=== PATIENT | female | born 1980 | race Caucasian/White ===

== ENCOUNTER 2018-03-17 14:52 | Emergency (ER) | payer MEDICAID ==
[~2018-03-17] VITALS: Ht 160 cm; Wt 148.8 kg
[~2018-03-17 14:52] MED LIST: ALBU90OI INH; ALBU90OI61 INH; Adipex-P37.5 M1 PO; Bactrim Ds Tab1 EACH PO; Cyclobenzaprine5 MG PO; Desyrel150 MG PO; GLIP10 PO; GLIP5; IBUP800 PO; LAMO100 PO; LISI20 PO; Lamictal150 MG PO; METF500 PO; METPRE4DP PO; Metformin HCl750 MG PO; Monodox100 MG PO; Percocet 5-3251 EACH PO; Prednisone20 MG PO; Prilosec Otc20 MG PO; SUCR1 PO; TOPI25; TRAM50 PO; Ultram50 MG PO; Ventolin Soln3 ML INH; ZESTORETIC 20-121 EA PO; [UNRECOGNIZED DRUG - OTHER]; [UNRECOGNIZED DRUG - OTHER]
[2018-03-17] MEDS ORDERED: Prednisone20 MG PO (15:12)
[2018-03-17] MEDS ORDERED: Triamcinolone A15 G3 TOP (15:12)
== END 2018-03-17 15:15 | disposition home or self-care (01) ==
LOC: ER 14:52
DX: T65.891A Toxic effect of other specified substances, accidental (unintentional), initial encounter (principal); L25.3 Unspecified contact dermatitis due to other chemical products; J45.909 Unspecified asthma, uncomplicated; I10 Essential (primary) hypertension; E11.9 Type 2 diabetes mellitus without complications; F31.9 Bipolar disorder, unspecified; Z91.040 Latex allergy status; Z88.8 Allergy status to other drugs, medicaments and biological substances; Z79.899 Other long term (current) drug therapy; Z79.84 Long term (current) use of oral hypoglycemic drugs
CPT/HCPCS: 99282

== ENCOUNTER 2019-03-11 20:35 | Emergency (ER) | payer OTHER ==
[~2019-03-11] VITALS: Ht 160 cm; Wt 166.9 kg
[~2019-03-11 20:35] MED LIST changes: +Triamcinolone A15 G3 TOP
[2019-03-11] MEDS ORDERED: IBUP800 PO (21:51)
== END 2019-03-11 21:56 | disposition home or self-care (01) ==
LOC: ER 20:35
DX: S63.92XA Sprain of unspecified part of left wrist and hand, initial encounter (principal); M79.672 Pain in left foot; W18.30XA Fall on same level, unspecified, initial encounter; Z91.040 Latex allergy status; Z88.8 Allergy status to other drugs, medicaments and biological substances; Z79.899 Other long term (current) drug therapy; Z79.84 Long term (current) use of oral hypoglycemic drugs; Z79.52 Long term (current) use of systemic steroids; I10 Essential (primary) hypertension; J45.909 Unspecified asthma, uncomplicated; E11.9 Type 2 diabetes mellitus without complications; F31.9 Bipolar disorder, unspecified
CPT/HCPCS: 29125; 73130; 99283-25

== ENCOUNTER 2019-06-18 09:52 | Emergency (ER) | payer OTHER ==
[~2019-06-18] VITALS: Ht 162.6 cm; Wt 166.9 kg
[2019-06-18] MEDS ORDERED: ZESTORETIC 20-251 EA (10:24)
[2019-06-18] MEDS ORDERED: Prednisone20 MG PO (11:18)
[2019-06-18] MEDS ORDERED: BENZ100A PO (11:18)
[2019-06-18] MEDS ORDERED: Sudogest30 MG PO (11:18)
[2019-06-18] MEDS ORDERED: Flonase 0.05% N16 GM (11:18)
[2019-06-18] MEDS ORDERED: ALBU90OI INH (11:18)
== END 2019-06-18 11:30 | disposition home or self-care (01) ==
LOC: ER 09:52
DX: R05 Cough (principal); H65.93 Unspecified nonsuppurative otitis media, bilateral; I10 Essential (primary) hypertension; E11.9 Type 2 diabetes mellitus without complications; Z91.040 Latex allergy status; Z88.5 Allergy status to narcotic agent; Z79.899 Other long term (current) drug therapy
CPT/HCPCS: 71046; 94640; 99283-25

== ENCOUNTER 2019-07-03 15:29 | Emergency (ER) | payer OTHER ==
[~2019-07-03] VITALS: Ht 162.6 cm; Wt 164.2 kg
[~2019-07-03 15:29] MED LIST changes: +BENZ100A PO; +Flonase 0.05% N16 GM; +Sudogest30 MG PO; +ZESTORETIC 20-251 EA
[2019-07-03] MEDS ORDERED: NAPR550 PO (16:06)
== END 2019-07-03 16:45 | disposition home or self-care (01) ==
LOC: ER 15:29
DX: S90.32XA Contusion of left foot, initial encounter (principal); J45.909 Unspecified asthma, uncomplicated; I10 Essential (primary) hypertension; E11.9 Type 2 diabetes mellitus without complications; F31.9 Bipolar disorder, unspecified; Z91.040 Latex allergy status; Z88.8 Allergy status to other drugs, medicaments and biological substances; Z79.899 Other long term (current) drug therapy; Z79.51 Long term (current) use of inhaled steroids; W22.8XXA Striking against or struck by other objects, initial encounter
CPT/HCPCS: 73630; 96372; 99283-25; J1885

== ENCOUNTER 2019-07-17 19:16 | Emergency (ER) | payer OTHER ==
[~2019-07-17] VITALS: Ht 160 cm; Wt 165.6 kg
[~2019-07-17 19:16] MED LIST changes: +NAPR550 PO
[2019-07-17 19:38] LABS: Source, Urine Clean Catch
[2019-07-17 19:42] LABS: Bilirubin, Urine Neg (Neg); Blood, Urine Neg (Neg); Glucose Qualitative, Urine Neg (Neg); Ketones, Urine Neg (Neg); Leukocyte Esterase, Urine 2+ (Neg); Nitrite, Urine Neg (Neg); Protein, Urine Neg (Neg); Urobilinogen, Urine NORM (Normal)
[2019-07-17] MEDS ORDERED: VITAMIN D3 (19:42)
[2019-07-17 19:53] LABS: Appearance, Urine Clear (Clear); Color, Urine Pale Yellow (P-Yellow)
[2019-07-17 19:57] LABS: BASOPHILS ABSOLUTE AUTO 0.07 K/mm3 (0.00-0.23); BASOPHILS PERCENT AUTO 1 % (0-2); EOSINOPHILS ABSOLUTE AUTO 0.35 K/mm3 (0.00-0.68); EOSINOPHILS PERCENT AUTO 3 % (0-6); Hematocrit 42.3 % (33.0-51.0); Hemoglobin 13.9 g/dL (11.5-16.0); IMMATURE GRAN ABSOLUTE AUTO 0.12 K/mm3 (0.00-0.10); IMMATURE GRAN PERCENT AUTO 1 % (0-1); LYMPHOCYTES PERCENT AUTO 32 % (21-46); MONOCYTES ABSOLUTE AUTO 0.84 K/mm3 (0.16-1.47); MONOCYTES PERCENT AUTO 8 % (4-13); Mean Corpuscular HGB 31.4 pg (26.0-34.0); Mean Corpuscular HGB Conc 32.9 g/dL (31.5-36.5); Mean Corpuscular Volume 96 fL (80-100); Mean Platelet Volume 11.1 fL (9.1-12.4); NEUTROPHILS ABSOLUTE AUTO 6.17 K/mm3 (1.96-9.15); NEUTROPHILS PERCENT AUTO 56 % (41-73); Platelet Count 230 K/mm3 (150-400); RDW Coefficient Variation 12.3 % (11.7-14.2); RDW Standard Deviation 43.8 fL (35.1-46.3); Red Blood Cell Count 4.43 M/mm3 (3.80-5.20); White Blood Cell Count 11.05 K/mm3 (4.00-11.30)
[2019-07-17 19:58] LABS: Red Blood Cells, Urine 0-2 /hpf (0-2); Squamous Epithelial Cells Few /hpf (Few)
[2019-07-17 19:59] LABS: Bacteria Few /hpf
[2019-07-17 20:16] LABS: Alanine Aminotransfer (ALT/SGP 40 U/L (12-78); Albumin, Blood 3.6 g/dL (3.4-5.0); Alk Phos 87 U/L (50-136); Anion Gap 4 mmol/L (6-16); Aspartate Aminotrans (AST/SGOT 21 U/L (12-37); Bilirubin, Total 0.3 mg/dL (0.1-1.0); Blood Urea Nitrogen 15 mg/dL (8-24); Bun/Creatinine Ratio 20.1 (12.0-20.0); CO2, Blood 29 mmol/L (21-32); Calcium, Blood 9.1 mg/dL (8.5-10.1); Chloride, Blood 104 mmol/L (98-108); Creatinine, Blood 0.75 mg/dL (0.40-1.00); Globulin, Blood 3.5 g/dL (2.2-4.0); Glomerular Filtration Rate >60 (60-); Glucose, Blood 152 mg/dL (70-99); Potassium, Blood 3.5 mmol/L (3.5-5.5); Sodium, Blood 137 mmol/L (136-145); Total Protein, Blood 7.1 g/dL (6.4-8.2)
[2019-07-17] MEDS ORDERED: CEPH500 PO (20:17)
[2019-07-17] MEDS ORDERED: Ultram50 MG PO (20:17)
== END 2019-07-17 20:30 | disposition home or self-care (01) ==
LOC: ER 19:16
PROVIDERS: Physician Assistant
DX: N12 Tubulo-interstitial nephritis, not specified as acute or chronic (principal); I10 Essential (primary) hypertension; E11.9 Type 2 diabetes mellitus without complications; F31.9 Bipolar disorder, unspecified; J45.909 Unspecified asthma, uncomplicated; Z79.899 Other long term (current) drug therapy
CPT/HCPCS: 36415; 80053; 81001; 83690; 85025; 87077; 87086; 87186; 96374; 99284-25; A9270-GY; J1885

== ENCOUNTER → 2019-11-26 | Outpatient (CLI) | payer OTHER ==
[~2019-11-26] MED LIST changes: +CEPH500 PO; +VITAMIN D3
== END | disposition home or self-care (01) ==
LOC: LAB SHORT 19:44 → LAB 19:44
DX: R82.90 Unspecified abnormal findings in urine (principal)
CPT/HCPCS: 87077; 87086; 87186

== ENCOUNTER 2022-03-28 09:42 | Emergency (ER) | payer OTHER ==
[~2022-03-28] VITALS: Ht 162.6 cm; Wt 163.8 kg
[2022-03-28] MEDS ORDERED: Prednisone20 MG PO (09:57)
== END 2022-03-28 10:20 | disposition home or self-care (01) ==
LOC: ER 09:42
DX: L50.9 Urticaria, unspecified (principal); I10 Essential (primary) hypertension; J45.909 Unspecified asthma, uncomplicated; E11.9 Type 2 diabetes mellitus without complications; Z88.8 Allergy status to other drugs, medicaments and biological substances; Z91.040 Latex allergy status; Z79.899 Other long term (current) drug therapy
CPT/HCPCS: 99282

== ENCOUNTER 2022-06-11 11:49 | Emergency (ER) | payer OTHER ==
[~2022-06-11] VITALS: Ht 162.6 cm; Wt 163.8 kg
[~2022-06-11 11:49] MED LIST changes: +CEFP200 PO; +GLYBURIDE5 M2 PO; +HYDCHL25 PO; +METFORMIN HCL500 M3 PO
== END 2022-06-11 13:15 | disposition home or self-care (01) ==
LOC: ER 11:49
DX: S63.501A Unspecified sprain of right wrist, initial encounter (principal); I10 Essential (primary) hypertension; J45.909 Unspecified asthma, uncomplicated; E11.9 Type 2 diabetes mellitus without complications; Z91.040 Latex allergy status; Z88.8 Allergy status to other drugs, medicaments and biological substances; Z79.899 Other long term (current) drug therapy; Z79.84 Long term (current) use of oral hypoglycemic drugs
CPT/HCPCS: 73110

== ENCOUNTER 2023-07-02 18:03 | Emergency (ER) | payer OTHER ==
[~2023-07-02] VITALS: Ht 162.6 cm; Wt 170.1 kg
[2023-07-02 18:23] VITALS: BP 146/101
== END 2023-07-02 19:40 | disposition home or self-care (01) ==
LOC: ER 18:03
DX: S40.011A Contusion of right shoulder, initial encounter (principal); S90.32XA Contusion of left foot, initial encounter; S83.92XA Sprain of unspecified site of left knee, initial encounter; W10.9XXA Fall (on) (from) unspecified stairs and steps, initial encounter; E11.9 Type 2 diabetes mellitus without complications; I10 Essential (primary) hypertension; F31.9 Bipolar disorder, unspecified; Z88.8 Allergy status to other drugs, medicaments and biological substances; Z91.040 Latex allergy status; Z79.899 Other long term (current) drug therapy; Z79.84 Long term (current) use of oral hypoglycemic drugs; J45.909 Unspecified asthma, uncomplicated
CPT/HCPCS: 73030; 73562-LT; 73620; 99283-25; A9270

== ENCOUNTER → 2024-05-19 | Outpatient (CLI) | payer BC | LOC: LAB SHORT 14:51 → LAB 14:51 | DX: J02.9 Acute pharyngitis, unspecified (principal) | CPT/HCPCS: 87081 ==

== ENCOUNTER 2024-08-26 20:57 | Inpatient (IN) | payer BC, OTHER ==
[~2024-08-26] VITALS: Ht 165.1 cm; Wt 168.1 kg
[~2024-08-26 20:57] MED LIST changes: +CYCL10 PO; -HYDCHL25 PO; +HYDCHL50 PO; +Norco 5-325 Ta1 EACH PO; -VITAMIN D3; +VITAMIN D3 PO
[2024-08-26 22:37] LABS: Source, Urine Clean Catch
[2024-08-26 22:43] LABS: Bilirubin, Urine Neg (Neg); Blood, Urine 5+ (Neg); Glucose Qualitative, Urine Neg (Neg); Ketones, Urine 1+ (Neg); Leukocyte Esterase, Urine Neg (Neg); Nitrite, Urine Neg (Neg); Protein, Urine Neg (Neg); Urobilinogen, Urine NORM (Normal)
[2024-08-26 22:51] LABS: BASOPHILS ABSOLUTE AUTO 0.07 K/mm3 (0.00-0.23); BASOPHILS PERCENT AUTO 0 % (0-2); EOSINOPHILS ABSOLUTE AUTO 0.14 K/mm3 (0.00-0.68); EOSINOPHILS PERCENT AUTO 1 % (0-6); Hematocrit 44.2 % (33.0-51.0); IMMATURE GRAN ABSOLUTE AUTO 0.09 K/mm3 (0.00-0.10); IMMATURE GRAN PERCENT AUTO 1 % (0-1); LYMPHOCYTES ABSOLUTE AUTO 2.27 K/mm3 (0.84-5.20); LYMPHOCYTES PERCENT AUTO 13 % (21-46); MONOCYTES ABSOLUTE AUTO 1.12 K/mm3 (0.16-1.47); MONOCYTES PERCENT AUTO 6 % (4-13); Mean Corpuscular HGB 30.8 pg (26.0-34.0); Mean Corpuscular HGB Conc 33.9 g/dL (31.5-36.5); Mean Corpuscular Volume 91 fL (80-100); Mean Platelet Volume 11.3 fL (9.1-12.4); NEUTROPHILS ABSOLUTE AUTO 13.81 K/mm3 (1.96-9.15); NEUTROPHILS PERCENT AUTO 79 % (41-73); Platelet Count 242 K/mm3 (150-400); RDW Coefficient Variation 12.6 % (11.7-14.2); Red Blood Cell Count 4.87 M/mm3 (3.80-5.20)
[2024-08-26 22:55] LABS: Appearance, Urine Clear (Clear); Color, Urine Yellow (P-Yellow); Red Blood Cells, Urine 25-50 /hpf (0-2); White Blood Cells, Urine Not Seen /hpf (0-5)
[2024-08-26 22:56] LABS: Bacteria Few /hpf; Squamous Epithelial Cells Few /hpf (Few)
[2024-08-26 23:24] LABS: Alanine Aminotransfer (ALT/SGP 52 U/L (12-78); Albumin, Blood 3.4 g/dL (3.4-5.0); Albumin/Globulin Ratio 0.9 (0.8-1.8); Alk Phos 101 U/L (50-136); Anion Gap 9 mmol/L (3-11); Aspartate Aminotrans (AST/SGOT 56 U/L (12-37); Bilirubin, Total 0.6 mg/dL (0.1-1.0); Blood Urea Nitrogen 12 mg/dL (8-24); Bun/Creatinine Ratio 16.7 (12.0-20.0); CO2, Blood 27 mmol/L (21-32); Calcium, Blood 9.5 mg/dL (8.5-10.1); Chloride, Blood 106 mmol/L (98-108); Creatinine, Blood 0.72 mg/dL (0.40-1.00); Globulin, Blood 3.8 g/dL (2.2-4.0); Glomerular Filtration Rate 107 (60-); Glucose, Blood 257 mg/dL (70-99); Potassium, Blood 4.3 mmol/L (3.5-5.5); Sodium, Blood 138 mmol/L (136-145); Total Protein, Blood 7.2 g/dL (6.4-8.2)
[2024-08-26] MEDS ORDERED: Ondansetron HCl 2 MG / ML 2ML Vial IV ONE (23:40)
[2024-08-26] MEDS ORDERED: Morphine Sulfate 4 MG/1 ML Injection IV ONE (23:40)
[2024-08-27] MEDS ORDERED: HYDROmorphone HCl/Pf 1MG SYR IV ONE (01:00)
[2024-08-27] MEDS ORDERED: NS 1,000 ML IV SCH (02:10)
[2024-08-27] MEDS ORDERED: Ondansetron HCl 2 MG / ML 2ML Vial IV PRN (02:10)
[2024-08-27] MEDS ORDERED: FLU VACC TS2024-25(6MOS UP)/PF 45 MCG/0.5 ML SYRINGE IM ONE (02:10)
[2024-08-27] MEDS ORDERED: FentaNYL Citrate 50 MCG/ML 2 ML Injection IV PRN (02:15)
[2024-08-27 02:44] LABS: CHOL/HDL RATIO 3.6; Cholesterol 162 mg/dL (50-200); HDL Cholesterol 45 mg/dL (>39); LDL/HDL RATIO 1.9; Low Density Lipoprotein Chol 86 mg/dL (0-110); Triglycerides 153 mg/dL (30-160); Very Low Density Lipoprot Chol 30 mg/dL (6-32)
[2024-08-27 05:16] LABS: BASOPHILS ABSOLUTE AUTO 0.05 K/mm3 (0.00-0.23); BASOPHILS PERCENT AUTO 1 % (0-2); EOSINOPHILS ABSOLUTE AUTO 0.11 K/mm3 (0.00-0.68); EOSINOPHILS PERCENT AUTO 1 % (0-6); Hematocrit 41.1 % (33.0-51.0); IMMATURE GRAN ABSOLUTE AUTO 0.03 K/mm3 (0.00-0.10); IMMATURE GRAN PERCENT AUTO 0 % (0-1); LYMPHOCYTES ABSOLUTE AUTO 3.15 K/mm3 (0.84-5.20); LYMPHOCYTES PERCENT AUTO 32 % (21-46); MONOCYTES ABSOLUTE AUTO 0.66 K/mm3 (0.16-1.47); MONOCYTES PERCENT AUTO 7 % (4-13); Mean Corpuscular HGB Conc 34.1 g/dL (31.5-36.5); Mean Corpuscular Volume 91 fL (80-100); Mean Platelet Volume 11.6 fL (9.1-12.4); NEUTROPHILS ABSOLUTE AUTO 5.88 K/mm3 (1.96-9.15); NEUTROPHILS PERCENT AUTO 60 % (41-73); Platelet Count 232 K/mm3 (150-400); RDW Coefficient Variation 12.7 % (11.7-14.2); RDW Standard Deviation 41.6 fL (35.1-46.3); Red Blood Cell Count 4.52 M/mm3 (3.80-5.20); White Blood Cell Count 9.88 K/mm3 (4.00-11.30)
[2024-08-27 05:53] LABS: Albumin, Blood 3.1 g/dL (3.4-5.0); Albumin/Globulin Ratio 0.9 (0.8-1.8); Bilirubin, Total 0.5 mg/dL (0.1-1.0); Bun/Creatinine Ratio 17.8 (12.0-20.0); Calcium, Blood 9.3 mg/dL (8.5-10.1); Creatinine, Blood 0.62 mg/dL (0.40-1.00); Globulin, Blood 3.6 g/dL (2.2-4.0); Potassium, Blood 3.9 mmol/L (3.5-5.5); Total Protein, Blood 6.7 g/dL (6.4-8.2)
[2024-08-27] MEDS ORDERED: Insulin Human Lispro 100 Units/ML 3ML Syringe SC SCH (07:30)
[2024-08-27 08:11] VITALS: BP 110/62
[2024-08-27] MEDS ORDERED: Enoxaparin 40 MG/0.4 ML SYR SC SCH (09:00)
[2024-08-27] MEDS ORDERED: CYCL10 PO (10:27)
[2024-08-27] MEDS ORDERED: LISI20 PO (10:29)
[2024-08-27] MEDS ORDERED: ROSUVASTATIN CAL5 MG PO (10:30)
[2024-08-27] MEDS ORDERED: MULVITA (10:31)
[2024-08-27] MEDS ORDERED: MULVITA PO (10:31)
[2024-08-27] MEDS ORDERED: TRULICITY3 MG/0.5 M SC (10:32)
[2024-08-27] MEDS ORDERED: BASAGLAR K100 UNIT/6 SC (14:59)
[2024-08-27 15:10] VITALS: BP 130/107
--- NOTE | 2024-08-27 15:58 | NUR ---
PATIENT TRANSFFERED TO MEDICAL FLOOR ROOM 304, REPORT GIVEN TO ANIVAL HOWE.
[2024-08-27 15:59] VITALS: BP 112/72
[2024-08-27] MEDS ORDERED: Lactated Ringer's 1,000 ML IV SCH (17:35)
[2024-08-27] MEDS ORDERED: HYDROmorphone HCl/Pf 1MG SYR IV PRN (17:50)
[2024-08-27] MEDS ORDERED: Cyclobenzaprine HCl 10 MG Tab PO PRN (17:55)
[2024-08-27 18:25] VITALS: BP 140/82
--- NOTE | 2024-08-27 19:55 | NUR ---
SHIFT SUMMARY- BEDSIDE REPORT COMPLETED WITH NIGHT RN. PT IN BED, CALL LIGHT IN REACH NO S&S OF DSTRESS NOTED SO AT THE BEDSIDE. PT WAS MEDICATED WITH IV DILAUDID PRIOR TO SHIFT CHANGE. NO S&S OF DISTRESS NOTED AT THE TIME OF REPORT. BED ALARM IS SET TO KEEP PT SAFE AFTER THE IV PAIN MEDS, THEY MADE HER A LITTLE DIZZY DIRECTLY AFTER SHE RECIEVED THEM.
[2024-08-27] MEDS ORDERED: Insulin Glargine-Yfgn 100 Unit/mL 3 ML SYR SC SCH (21:00)
[2024-08-28 02:35] VITALS: BP 99/65
[2024-08-28 02:41] VITALS: BP 144/85
--- NOTE | 2024-08-28 04:48 | NUR ---
A&OX4, MEDICATED X2 FOR ABD PAIN, 1X FOR NAUSEA, BEDRESTING AT THIS TIME, CALL LIGHT IN REACH, WILL CONT TO MONITOR UNTIL REPORT GIVEN TO ONCOMING NURSE.
[2024-08-28 07:08] VITALS: BP 130/98
[2024-08-28] MEDS ORDERED: Insulin Regular 100 UNIT/ML 10ML Vial SC SCH (07:30)
[2024-08-28] MEDS ORDERED: HydroCHLOROthiazide 25 mg Tab PO SCH (09:00)
[2024-08-28] MEDS ORDERED: Rosuvastatin Calcium 10 MG Tab PO SCH (09:00)
[2024-08-28] MEDS ORDERED: Lisinopril 20 MG Tab PO SCH (09:00)
[2024-08-28 09:40] VITALS: BP 151/99
[2024-08-28 16:14] VITALS: BP 136/79
--- NOTE | 2024-08-28 18:01 | NUR ---
SHIFT SUMMARY- PT PAIN MANAGEMENT IS STILL AN ISSUE ALTHOUGH THE PAIN MEDS WERE ABOUT EVERY 4 HOURS OR SO. SHE IS ALERT, ORIENTED AND INDEPENDENT IN THE ROOM. PT IS SITTING UP IN BED, CALL LIGHT IN REACH, SHE STATES PAIN IS WELL MANAGED AT THIS TIME. PT IS A DIABETIC, BG CHECKS CHANGED TO [facility] THIS AFTERNOON PER DR JORDAN. BG 162 BEFORE LUNCH HELD THE HUMALOG FOR CLINICAL JUDGEMENT. BG BEFORE DINNER WAS 106. PT IS ON LR AT 125ML/HR. PT WAS ABLE TO HAVE A FULL SHOWER TODAY. SPOKE TO ABOUT PO PAIN MEDS, NOT ORDERED AT THIS TIME, PLAN IS FOR GI REST WITH ONLY CLEAR LIQUIDS. PT IN BED, CALL LIGHT IN REACH, SO AND DAUGHTER AT THE BEDSIDE, NO CURRENT S&S OF DISTRESS AT THIS TIME.
[2024-08-28 20:57] VITALS: BP 128/72
[2024-08-29 02:43] VITALS: BP 113/63
[2024-08-29 04:56] LABS: BASOPHILS ABSOLUTE AUTO 0.04 K/mm3 (0.00-0.23); BASOPHILS PERCENT AUTO 1 % (0-2); EOSINOPHILS ABSOLUTE AUTO 0.28 K/mm3 (0.00-0.68); EOSINOPHILS PERCENT AUTO 3 % (0-6); Hematocrit 38.5 % (33.0-51.0); Hemoglobin 13.1 g/dL (11.5-16.0); IMMATURE GRAN ABSOLUTE AUTO 0.03 K/mm3 (0.00-0.10); IMMATURE GRAN PERCENT AUTO 0 % (0-1); LYMPHOCYTES ABSOLUTE AUTO 2.21 K/mm3 (0.84-5.20); LYMPHOCYTES PERCENT AUTO 26 % (21-46); MONOCYTES PERCENT AUTO 8 % (4-13); Mean Corpuscular HGB 30.8 pg (26.0-34.0); Mean Corpuscular Volume 90 fL (80-100); Mean Platelet Volume 11.5 fL (9.1-12.4); NEUTROPHILS ABSOLUTE AUTO 5.14 K/mm3 (1.96-9.15); NEUTROPHILS PERCENT AUTO 61 % (41-73); Platelet Count 190 K/mm3 (150-400); RDW Coefficient Variation 12.6 % (11.7-14.2); RDW Standard Deviation 41.5 fL (35.1-46.3); Red Blood Cell Count 4.26 M/mm3 (3.80-5.20)
[2024-08-29 05:19] LABS: Bun/Creatinine Ratio 9.7 (12.0-20.0); Calcium, Blood 9.3 mg/dL (8.5-10.1); Creatinine, Blood 0.62 mg/dL (0.40-1.00); Potassium, Blood 4.2 mmol/L (3.5-5.5)
--- NOTE | 2024-08-29 06:22 | NUR ---
A&OX4, VSS, MEDICATED X2 FOR PAIN & PREMEDICATED FOR NAUSEA PRIOR TO DILAUDID, INDEP TO BR, SLEEPING AT THIS TIME, CALL LIGHT IN REACH, WILL CONT TO MONITOR UNTIL REPORT GIVEN TO ONCOMING NURSE.
[2024-08-29 07:32] VITALS: BP 112/60
[2024-08-29] MEDS ORDERED: HYDROcodone 5-APAP 325 TAB PO PRN (13:55)
[2024-08-29 15:41] VITALS: BP 118/83
--- NOTE | 2024-08-29 18:06 | NUR ---
SHIFT SUMMARY: PT IS A&OX4/INDEPENDENT; CALLS APPROPRIATELY. SHE CONTINUES TO LR AT 125ML/HR AND ON A CLEAR LIQUID DIET; TOLERATING WELL. SHE WAS SWITCHED TO PO PAIN MEDICATION TODAY; RECEIVED ONE DOSE FOR EPIGASTRIC PAIN, TOLERATED WELL, NO COMPLAINTS OF NAUSEA. THE PLAN IS TO ADVANCE HER DIET TODAY. SHE IS IN BED, FAMILY AT BEDSIDE, NO SIGNS OR SYMPTOMS OF DISTRESS, PLAN OF CARE ONGOING.
[2024-08-29 19:30] VITALS: BP 129/80
[2024-08-30 04:36] VITALS: BP 129/82
[2024-08-30 04:53] LABS: BASOPHILS ABSOLUTE AUTO 0.06 K/mm3 (0.00-0.23); BASOPHILS PERCENT AUTO 1 % (0-2); EOSINOPHILS ABSOLUTE AUTO 0.38 K/mm3 (0.00-0.68); EOSINOPHILS PERCENT AUTO 5 % (0-6); Hematocrit 37.7 % (33.0-51.0); Hemoglobin 13.1 g/dL (11.5-16.0); IMMATURE GRAN ABSOLUTE AUTO 0.03 K/mm3 (0.00-0.10); IMMATURE GRAN PERCENT AUTO 0 % (0-1); LYMPHOCYTES ABSOLUTE AUTO 2.56 K/mm3 (0.84-5.20); LYMPHOCYTES PERCENT AUTO 34 % (21-46); MONOCYTES ABSOLUTE AUTO 0.64 K/mm3 (0.16-1.47); MONOCYTES PERCENT AUTO 9 % (4-13); Mean Corpuscular HGB 31.6 pg (26.0-34.0); Mean Corpuscular HGB Conc 34.7 g/dL (31.5-36.5); Mean Corpuscular Volume 91 fL (80-100); Mean Platelet Volume 11.7 fL (9.1-12.4); NEUTROPHILS ABSOLUTE AUTO 3.89 K/mm3 (1.96-9.15); NEUTROPHILS PERCENT AUTO 51 % (41-73); Platelet Count 197 K/mm3 (150-400); RDW Coefficient Variation 12.5 % (11.7-14.2); RDW Standard Deviation 41.2 fL (35.1-46.3); Red Blood Cell Count 4.14 M/mm3 (3.80-5.20); White Blood Cell Count 7.56 K/mm3 (4.00-11.30)
[2024-08-30 05:22] LABS: Bun/Creatinine Ratio 9.6 (12.0-20.0); Calcium, Blood 9.5 mg/dL (8.5-10.1); Creatinine, Blood 0.62 mg/dL (0.40-1.00)
--- NOTE | 2024-08-30 05:51 | NUR ---
A&O, NO ACUTE CHANGES, PT TRIED TO ONLY USE NORCO FOR PAIN BUT DID NEED 1 DOSE OF DILAUDID (0.5) THIS SHIFT, PAIN NOT WELL CONTROLLED W/NORCO, PREMEDICATED 1X FOR NAUSEA PRIOR TO DILAUDID, SLEEPING AT THIS TIME, CALL LIGHT IN REACH, WILL CONT TO MONITOR UNTIL REPORT GIVEN TO ONCOMING NURSE.
[2024-08-30 07:20] VITALS: BP 117/79
[2024-08-30 16:42] VITALS: BP 120/87
--- NOTE | 2024-08-30 17:20 | NUR ---
SHIFT SUMMARY: PT ADVANCED TO A FULL LIQUID DIET TODAY, TOLERATING WELL. CONTINUES TO GET LR AT 125ML/HR. SHE CONTINUES TO HAVE PERIOD EPIGASTRIC PAIN AND REQUEST PO PAIN MEDICATION NEEDED, BUT NO IV PAIN MEDICATION ADMINISTERED THIS SHIFT. PATIENT IS IN BED, CALL LIGHT WITHIN REACH, NO SIGNS OR SYMPTOMS OF DISTRESS, PLAN OF CARE ONGOING.
[2024-08-30 20:44] VITALS: BP 153/92
[2024-08-31 03:24] VITALS: BP 121/68
--- NOTE | 2024-08-31 05:36 | NUR ---
SHIFT SUMMARY PT A&Ox4 AND PLEASANT. MEDICATED FOR UPPER ABD PAIN PER EMAR. PT STATED ORAL PAIN MEDICATION HAS NOT BEEN EFFECTIVE AT CONTROLLING THE PAIN. PT TOLERATING FULL LIQUID DIET. LR INFUSING AT 125ml/hr. NO EVENTS ON TELE. AT BEDSIDE T/O NIGHT. IND IN ROOM. VSS. BED IN LOWEST POSITION AND CALL LIGHT IN REACH.
[2024-08-31 05:59] LABS: BASOPHILS ABSOLUTE AUTO 0.06 K/mm3 (0.00-0.23); BASOPHILS PERCENT AUTO 1 % (0-2); EOSINOPHILS ABSOLUTE AUTO 0.36 K/mm3 (0.00-0.68); EOSINOPHILS PERCENT AUTO 5 % (0-6); Hematocrit 39.1 % (33.0-51.0); Hemoglobin 13.5 g/dL (11.5-16.0); IMMATURE GRAN ABSOLUTE AUTO 0.02 K/mm3 (0.00-0.10); IMMATURE GRAN PERCENT AUTO 0 % (0-1); LYMPHOCYTES ABSOLUTE AUTO 2.25 K/mm3 (0.84-5.20); LYMPHOCYTES PERCENT AUTO 30 % (21-46); MONOCYTES ABSOLUTE AUTO 0.71 K/mm3 (0.16-1.47); MONOCYTES PERCENT AUTO 9 % (4-13); Mean Corpuscular HGB 31.3 pg (26.0-34.0); Mean Corpuscular HGB Conc 34.5 g/dL (31.5-36.5); Mean Corpuscular Volume 91 fL (80-100); Mean Platelet Volume 11.3 fL (9.1-12.4); NEUTROPHILS ABSOLUTE AUTO 4.18 K/mm3 (1.96-9.15); NEUTROPHILS PERCENT AUTO 55 % (41-73); Platelet Count 224 K/mm3 (150-400); RDW Coefficient Variation 12.5 % (11.7-14.2); RDW Standard Deviation 41.3 fL (35.1-46.3); Red Blood Cell Count 4.32 M/mm3 (3.80-5.20); White Blood Cell Count 7.58 K/mm3 (4.00-11.30)
[2024-08-31 06:15] LABS: Calcium, Blood 9.9 mg/dL (8.5-10.1); Creatinine, Blood 0.6 mg/dL (0.40-1.00)
[2024-08-31 07:32] VITALS: BP 101/52
[2024-08-31] MEDS ORDERED: HYDROcodone 5-APAP 325 TAB PO PRN ×2 (12:00→13:05)
[2024-08-31 15:30] VITALS: BP 144/84
--- NOTE | 2024-08-31 16:35 | NUR ---
SHIFT SUMMARY: PATIENT'S TELE AND IV FLUIDS WERE D/C'D TODAY. SHE DOES CONTINUE TO HAVE PERIOD EPIGASTRIC PAIN. HER PO MEDICATION WAS INCREASED TO 1-2 TABLETS; 2 TABLETS WERE GIVEN THIS AFTERNOON FOR REPORTED PAIN. PATIENT HAS NOT COMPLAINED OF PAIN SINCE. SHE CONTINUES TO TOLERATE A FULL LIQUID DIET. SHE IS IN BED, ALERT, FAMILY AT BEDSIDE, CALL LIGHT WITHIN REACH, NO SIGNS OR SYMPTOMS OF DISTRESS, PLAN OF CARE ONGOING.
[2024-08-31 19:30] VITALS: BP 136/81
[2024-08-31] MEDS ORDERED: Magnesium Hydroxide Conc 10 ML UDC PO PRN (23:00)
[2024-08-31] MEDS ORDERED: Bisacodyl 10 MG Supp PR PRN (23:00)
[2024-09-01 03:17] VITALS: BP 118/59
--- NOTE | 2024-09-01 04:57 | NUR ---
SHIFT SUMMARY PT A&Ox4. PT CONTINUES TO HAVE UPPER ABD PAIN. PT STATES ORAL PAIN MEDICATION IS INEFFECTIVE, EVEN WITH DOSE INCREASE. MEDICATED WITH DILAUDED WITH GOOD EFFECT. BG WAS 149 AT HS AND 20 UNITS OF GLARGINE GIVEN PER EMAR. PT REPORTED FEELING CONSTIPATED AND BOWEL CARE ORDERS GIVEN, HOWEVER PT STATED SHE WAS FINALLY ABLE TO HAVE BM. VSS. BED IN LOWEST POSITION AND CALL LIGHT IN REACH.
[2024-09-01 07:43] VITALS: BP 149/81
[2024-09-01] MEDS ORDERED: Docusate Sodium 100 MG Cap PO SCH (09:00)
[2024-09-01] MEDS ORDERED: Sennosides 8.6 MG Tab PO SCH (09:00)
[2024-09-01] MEDS ORDERED: BISA10S PR (14:09)
[2024-09-01] MEDS ORDERED: DOCU100 PO (14:10)
[2024-09-01] MEDS ORDERED: HYDR1TAB94 PO (14:10)
[2024-09-01] MEDS ORDERED: SENN187 PO (14:11)
--- NOTE | 2024-09-01 14:54 | NUR ---
DISCHARGE SUMMARY PT DISCHARGED TO HOME. ALL DISCHARGE INSTRUCTIONS DISCUSSED, PT AGREES TO SQUIRREL MAN MEDICATIONS FROM PHARMACY AND TO FOLLOW UP WITH PCP WITHIN 5 DAYS. IV DC'D AND BELONGINGS RETURNED. ALL QUESTIONS ANSWERED. PT LEFT ROOM VIA WHEELCHAIR WITH THIS RN ESCORT TO PERSONAL VEHICLE.
== END 2024-09-01 14:26 | disposition home or self-care (01) | DRG 439 ==
LOC: ER 20:57 → ERHOLD 08-27 02:05 → MEDS 08-27 02:05
PROVIDERS: Family Medicine; Physician Assistant; ADMIT Internal Medicine
DX: K85.30 Drug induced acute pancreatitis without necrosis or infection (principal); Z68.44 Body mass index [BMI] 60.0-69.9, adult; I10 Essential (primary) hypertension; E66.01 Morbid (severe) obesity due to excess calories; T38.3X5A Adverse effect of insulin and oral hypoglycemic [antidiabetic] drugs, initial encounter; E86.0 Dehydration; E11.65 Type 2 diabetes mellitus with hyperglycemia; F31.9 Bipolar disorder, unspecified; M17.12 Unilateral primary osteoarthritis, left knee; J45.909 Unspecified asthma, uncomplicated; Z98.84 Bariatric surgery status; Z91.040 Latex allergy status; Z88.8 Allergy status to other drugs, medicaments and biological substances; Z79.84 Long term (current) use of oral hypoglycemic drugs; Z79.85 Long-term (current) use of injectable non-insulin antidiabetic drugs
CPT/HCPCS: 36415; 74177; 80048; 80053; 80061; 81001; 81025; 82947; 83690; 85025; 96374; 96375; 99285-25; A9270; J1171; J1650; J1815; J2270; J2405; J3010; J7030; J7120; Q9967

== ENCOUNTER 2024-09-22 23:52 | Inpatient (IN) | payer BC, OTHER ==
[~2024-09-22] VITALS: Ht 160 cm; Wt 170.8 kg
[~2024-09-22 23:52] MED LIST changes: +BASAGLAR K100 UNIT/6 SC; +BISA10S PR; +DOCU100 PO; +HYDR1TAB94 PO; +MULVITA; +MULVITA PO; +ROSUVASTATIN CAL5 MG PO; +SENN187 PO; +TRULICITY3 MG/0.5 M SC
[2024-09-23] MEDS ORDERED: Ipratropium/Albuterol SulF 2.5-0.5MG/3 ML Amp INH PRN ×2 (00:10→05:25)
[2024-09-23] MEDS ORDERED: Albuterol 2.5 MG/3 ML VIAL INH SCH (01:10)
[2024-09-23] MEDS ORDERED: NS 1,000 ML IV SCH (01:10)
[2024-09-23] MEDS ORDERED: Dexamethasone Sod Phos 10 MG/ML 1ML VIAL IV ONE (01:10)
[2024-09-23 01:36] LABS: CORONAVIRUS COVID-19 AG Negative (NEGATIVE); INFLUENZA A AG Negative (NEGATIVE); INFLUENZA B AG Negative (NEGATIVE)
[2024-09-23 04:09] LABS: BASOPHILS ABSOLUTE AUTO 0.04 K/mm3 (0.00-0.23); BASOPHILS PERCENT AUTO 1 % (0-2); EOSINOPHILS ABSOLUTE AUTO 0.11 K/mm3 (0.00-0.68); EOSINOPHILS PERCENT AUTO 2 % (0-6); Hematocrit 41.8 % (33.0-51.0); Hemoglobin 14.5 g/dL (11.5-16.0); IMMATURE GRAN ABSOLUTE AUTO 0.03 K/mm3 (0.00-0.10); IMMATURE GRAN PERCENT AUTO 1 % (0-1); LYMPHOCYTES PERCENT AUTO 22 % (21-46); MONOCYTES PERCENT AUTO 5 % (4-13); Mean Corpuscular HGB 31.1 pg (26.0-34.0); Mean Corpuscular HGB Conc 34.7 g/dL (31.5-36.5); Mean Corpuscular Volume 90 fL (80-100); Mean Platelet Volume 11.8 fL (9.1-12.4); NEUTROPHILS ABSOLUTE AUTO 4.03 K/mm3 (1.96-9.15); NEUTROPHILS PERCENT AUTO 69 % (41-73); Platelet Count 155 K/mm3 (150-400); RDW Coefficient Variation 13.1 % (11.7-14.2); RDW Standard Deviation 42.9 fL (35.1-46.3); Red Blood Cell Count 4.66 M/mm3 (3.80-5.20); White Blood Cell Count 5.81 K/mm3 (4.00-11.30)
[2024-09-23 04:28] LABS: Bun/Creatinine Ratio 23.1 (12.0-20.0); Creatinine, Blood 0.61 mg/dL (0.40-1.00); Potassium, Blood 3.9 mmol/L (3.5-5.5)
[2024-09-23] MEDS ORDERED: FLU VACC TS2024-25(6MOS UP)/PF 45 MCG/0.5 ML SYRINGE IM ONE (05:25)
[2024-09-23] MEDS ORDERED: Ondansetron HCl 2 MG / ML 2ML Vial IV PRN (05:30)
[2024-09-23] MEDS ORDERED: MethylPREDNISolone Sod Succ 125 MG Vial IV SCH ×2 (06:00→18:00)
[2024-09-23] MEDS ORDERED: Insulin Glargine-Yfgn 100 Unit/mL 3 ML SYR SC SCH ×2 (06:29→21:00)
[2024-09-23] MEDS ORDERED: Magnesium Sulf 2 GM/Water 50ML 50 ML IV ONE (06:35)
[2024-09-23] MEDS ORDERED: Insulin Human Lispro 100 Units/ML 3ML Syringe SC SCH (07:30)
[2024-09-23] MEDS ORDERED: Enoxaparin 40 MG/0.4 ML SYR SC SCH ×2 (09:00→21:00)
[2024-09-23] MEDS ORDERED: Lisinopril 20 MG Tab PO SCH (09:00)
[2024-09-23 12:03] VITALS: BP 147/106
--- NOTE | 2024-09-23 13:21 | NUR ---
arrival note patient arrived to pcu from er at 1155. patient transfered from er rhi into pcu bed independently ambulating. vital signs stable. tele sinus rhythm 90s. spo2 >95% on room air. patient is alert and oriented x4. neuro is intact. independent in the room and is able to make needs known. perrla. patient denies pain or chest pain/pressure. patient reports shortness of breath with exertion but spo2 sats remain above 90%. patient lung sounds with expiratory wheeze throughtout. see admit shift assessment for further detials. med rec complete and admit complete.
--- NOTE | 2024-09-23 14:46 | NUR ---
Upon receiving a referral for piritual care, I visited the patient. We had a long conversation and her medical issues, her family and her Faith/Jainism colin. She shares about raising her brother and sister, her work at the [employer] and her deep connection to God through prayer. She voices her anxiety about a long hospital stay given all the things she has going in her world. I encouraged self-care, reinforced helpful attitudes and practices, and provided therapeutic listening, anxiety containment and prayer. Patient responded well and showed signs of reduced stress.
[2024-09-23] MEDS ORDERED: Cyclobenzaprine HCl 10 MG Tab PO PRN (15:05)
[2024-09-23 15:14] VITALS: BP 134/88
--- NOTE | 2024-09-23 17:55 | NUR ---
shift summary patient neuro remains intact and unchanged. vitals remain stable. patient had a shower this evening. medical status with tele. no acute changes
[2024-09-23 20:37] VITALS: BP 136/102
[2024-09-24 00:39] VITALS: BP 129/91
[2024-09-24 03:43] VITALS: BP 133/96
[2024-09-24 04:15] LABS: BASOPHILS ABSOLUTE AUTO 0.01 K/mm3 (0.00-0.23); BASOPHILS PERCENT AUTO 0 % (0-2); EOSINOPHILS PERCENT AUTO 0 % (0-6); Hematocrit 40.9 % (33.0-51.0); Hemoglobin 13.9 g/dL (11.5-16.0); IMMATURE GRAN ABSOLUTE AUTO 0.05 K/mm3 (0.00-0.10); IMMATURE GRAN PERCENT AUTO 1 % (0-1); LYMPHOCYTES ABSOLUTE AUTO 1.43 K/mm3 (0.84-5.20); LYMPHOCYTES PERCENT AUTO 14 % (21-46); MONOCYTES ABSOLUTE AUTO 0.39 K/mm3 (0.16-1.47); MONOCYTES PERCENT AUTO 4 % (4-13); Mean Corpuscular HGB 30.5 pg (26.0-34.0); Mean Corpuscular Volume 90 fL (80-100); Mean Platelet Volume 12.2 fL (9.1-12.4); NEUTROPHILS ABSOLUTE AUTO 8.61 K/mm3 (1.96-9.15); NEUTROPHILS PERCENT AUTO 82 % (41-73); Platelet Count 195 K/mm3 (150-400); RDW Coefficient Variation 12.8 % (11.7-14.2); RDW Standard Deviation 42.2 fL (35.1-46.3); Red Blood Cell Count 4.56 M/mm3 (3.80-5.20); White Blood Cell Count 10.49 K/mm3 (4.00-11.30)
[2024-09-24 04:44] LABS: Albumin, Blood 3.1 g/dL (3.4-5.0); Albumin/Globulin Ratio 0.9 (0.8-1.8); Bilirubin, Total 0.3 mg/dL (0.1-1.0); Bun/Creatinine Ratio 26.8 (12.0-20.0); Calcium, Blood 9.5 mg/dL (8.5-10.1); Creatinine, Blood 0.49 mg/dL (0.40-1.00); Globulin, Blood 3.6 g/dL (2.2-4.0); Potassium, Blood 4.1 mmol/L (3.5-5.5); Total Protein, Blood 6.7 g/dL (6.4-8.2)
--- NOTE | 2024-09-24 05:41 | NUR ---
NOC SHIFT SUMMARY PT ORIENTED X4 OVERNIGHT, ON RA. VSS. CALM AND COOPERATIVE. NONPRODUCTIVE COUGH AND WHEEZES T/O. ON IV STEROIDS AND BLOOD SUGAR ELEVATED. NOTIFIED DR. RUIZ AND NO NEW ORDERS DUE TO INCREASE IN LONG ACTING INSULIN DOSING TO HOME REGIMEN. NO ACUTE EVENTS OVERNIGHT.
[2024-09-24 07:52] VITALS: BP 131/86
[2024-09-24] MEDS ORDERED: Insulin Glargine-Yfgn 100 Unit/mL 3 ML SYR SC SCH (09:00)
[2024-09-24] MEDS ORDERED: Cholecalciferol 1000 Unit Tablet (=25MCG) PO SCH (09:00)
[2024-09-24] MEDS ORDERED: Rosuvastatin Calcium 10 MG Tab PO SCH (09:00)
[2024-09-24] MEDS ORDERED: Multivitamins 1 Tab PO SCH (09:00)
[2024-09-24] MEDS ORDERED: HydroCHLOROthiazide 25 mg Tab PO SCH (09:00)
[2024-09-24] MEDS ORDERED: Insulin Regular 100 UNIT/ML 10ML Vial SC SCH (11:30)
[2024-09-24 11:52] VITALS: BP 138/95
--- NOTE | 2024-09-24 12:34 | NUR ---
THIS RN CALLED TO NOTIFY OF PT'S BLOD GLUCOSE. INSULIN GIVEN PER EMAR SLIDING SCALE. NO NEW ORDERS AT THIS TIME.
[2024-09-24] MEDS ORDERED: VITAMIN D310 MC5 PO (12:36)
[2024-09-24] MEDS ORDERED: HUMULIN R100 UNIT/1 SC (12:40)
[2024-09-24] MEDS ORDERED: IPRAT-ALBUT 0.5-3 ML INH (12:42)
[2024-09-24] MEDS ORDERED: PRED20 PO (12:42)
--- NOTE | 2024-09-24 13:19 | NUR ---
DISCHARGE NOTE PT D/C HOME AT 1313. PT PROVIDED W/ VERBAL AND WRITTEN INSTRUCTIONS AND REPORTED UNDERSTANDING. PT A&OX4, VSS, AMB IND, TOLERATING PO, VOIDING, AND DENIED PAIN. BELONGINGS WERE RETURNED AND PT WALKED OUT W/ HER .
== END 2024-09-24 13:59 | disposition home or self-care (01) | DRG 189 ==
LOC: ER 23:52 → ERHOLD 09-23 05:22 → PCU 09-23 05:22
PROVIDERS: Emergency Medicine; ADMIT Internal Medicine
DX: J96.01 Acute respiratory failure with hypoxia (principal); J45.901 Unspecified asthma with (acute) exacerbation; Z68.44 Body mass index [BMI] 60.0-69.9, adult; I10 Essential (primary) hypertension; F31.9 Bipolar disorder, unspecified; E11.65 Type 2 diabetes mellitus with hyperglycemia; E66.9 Obesity, unspecified; J06.9 Acute upper respiratory infection, unspecified; Z91.040 Latex allergy status; Z91.018 Allergy to other foods; Z88.8 Allergy status to other drugs, medicaments and biological substances; Z79.899 Other long term (current) drug therapy; Z79.811 Long term (current) use of aromatase inhibitors; Z79.4 Long term (current) use of insulin; Z79.891 Long term (current) use of opiate analgesic; Z79.51 Long term (current) use of inhaled steroids; Z90.710 Acquired absence of both cervix and uterus; Z90.89 Acquired absence of other organs; Z90.49 Acquired absence of other specified parts of digestive tract; Z87.448 Personal history of other diseases of urinary system; Z99.89 Dependence on other enabling machines and devices; Z28.21 Immunization not carried out because of patient refusal
CPT/HCPCS: 36415; 71045; 80048; 80053; 82947; 83880; 85025; 87428-QW; 94640; 94644; 94664; 96374; 99285-25; A9270; J1100; J1650; J1815; J2919; J3475; J7030

== ENCOUNTER 2025-08-10 11:03 | Emergency (ER) | payer OTHER ==
[~2025-08-10] VITALS: Ht 160 cm; Wt 170.1 kg
[~2025-08-10 11:03] MED LIST changes: +HUMULIN R100 UNIT/1 SC; +IPRAT-ALBUT 0.5-3 ML INH; +PRED20 PO; +VITAMIN D310 MC5 PO
[2025-08-10 11:56] LABS: BASOPHILS ABSOLUTE AUTO 0.06 K/mm3 (0.00-0.23); BASOPHILS PERCENT AUTO 1 % (0-2); EOSINOPHILS ABSOLUTE AUTO 0.23 K/mm3 (0.00-0.68); EOSINOPHILS PERCENT AUTO 3 % (0-6); Hematocrit 40.3 % (33.0-51.0); Hemoglobin 13.6 g/dL (11.5-16.0); IMMATURE GRAN ABSOLUTE AUTO 0.03 K/mm3 (0.00-0.10); IMMATURE GRAN PERCENT AUTO 0 % (0-1); LYMPHOCYTES ABSOLUTE AUTO 3.08 K/mm3 (0.84-5.20); LYMPHOCYTES PERCENT AUTO 33 % (21-46); MONOCYTES ABSOLUTE AUTO 0.69 K/mm3 (0.16-1.47); MONOCYTES PERCENT AUTO 8 % (4-13); Mean Corpuscular HGB Conc 33.7 g/dL (31.5-36.5); Mean Corpuscular Volume 92 fL (80-100); NEUTROPHILS ABSOLUTE AUTO 5.15 K/mm3 (1.96-9.15); NEUTROPHILS PERCENT AUTO 56 % (41-73); NRBC ABSOLUTE 0.00 K/mm3 (0.00-0.02); NRBC Auto 0.0 /100 WBC (0.0-0.2); Platelet Count 243 K/mm3 (150-400); RDW Coefficient Variation 12.9 % (11.7-14.2); RDW Standard Deviation 42.9 fL (35.1-46.3)
[2025-08-10 12:21] LABS: Alanine Aminotransfer (ALT/SGP 22.0 U/L (12-78); Albumin, Blood 3.3 g/dL (3.4-5.0); Albumin/Globulin Ratio 0.9 (0.8-1.8); Anion Gap 6.0 mmol/L (3-11); Aspartate Aminotrans (AST/SGOT 11.0 U/L (12-37); Bilirubin, Total 0.3 mg/dL (0.1-1.0); Blood Urea Nitrogen 12.0 mg/dL (8-24); CO2, Blood 27.0 mmol/L (21-32); Calcium, Blood 9.4 mg/dL (8.5-10.1); Chloride, Blood 110.0 mmol/L (98-108); Creatinine, Blood 0.63 mg/dL (0.40-1.00); Globulin, Blood 3.6 g/dL (2.2-4.0); Glucose, Blood 169.0 mg/dL (70-99); Potassium, Blood 3.9 mmol/L (3.5-5.5); Sodium, Blood 139.0 mmol/L (136-145); Total Protein, Blood 6.9 g/dL (6.4-8.2)
[2025-08-10 12:50] LABS: Source, Urine Clean Catch
[2025-08-10 12:55] LABS: Bilirubin, Urine Neg (Neg); Color, Urine Yellow (P-Yellow); Glucose Qualitative, Urine Neg (Neg); Ketones, Urine Neg (Neg); Leukocyte Esterase, Urine 1+ (Neg); Protein, Urine Neg (Neg); Specific Gravity, Urine 1.015 (1.003-1.022); Urobilinogen, Urine NORM (Normal)
[2025-08-10 13:02] LABS: Red Blood Cells, Urine 0-2 /hpf (0-2); White Blood Cells, Urine 0-2 /hpf (0-5)
[2025-08-10] MEDS ORDERED: FentaNYL Citrate 50 MCG/ML 2 ML Injection IV PRN (13:30)
[2025-08-10] MEDS ORDERED: Pantoprazole Sodium 40 MG Injection IV ONE (17:35)
[2025-08-10] MEDS ORDERED: NS 1,000 ML IV SCH (17:35)
[2025-08-10] MEDS ORDERED: Metoclopramide HCl 5MG / ML 2ML Vial IV ONE (17:35)
[2025-08-10 18:11] VITALS: BP 128/75
[2025-08-10] MEDS ORDERED: HYDROmorphone HCl/Pf 1MG SYR IV ONE (18:35)
[2025-08-10] MEDS ORDERED: METO5A PO (20:46)
== END 2025-08-10 20:55 | disposition home or self-care (01) ==
LOC: ER 11:03
PROVIDERS: Emergency Medicine
DX: R10.12 Left upper quadrant pain (principal); E86.0 Dehydration; R11.2 Nausea with vomiting, unspecified; E11.9 Type 2 diabetes mellitus without complications; I10 Essential (primary) hypertension; Z96.41 Presence of insulin pump (external) (internal); Z91.018 Allergy to other foods; Z91.040 Latex allergy status; Z88.8 Allergy status to other drugs, medicaments and biological substances; Z79.899 Other long term (current) drug therapy; Z59.89 Other problems related to housing and economic circumstances
CPT/HCPCS: 74022; 80053; 81001; 83690; 85025; 87086; 93005; 93010; 96361; 96374; 96375; 96376; 99284-25; J1171; J2470; J2765; J3010; J7030